=== PATIENT | male | born 1970 | race Caucasian/White ===

== ENCOUNTER 2023-08-05 08:11 | Day surgery (SDC) | payer OTHER, SELFPAY ==
[2023-08-05 08:26] VITALS: BP 126/80; PULSE 59; RESP 18; TEMP 36.3; O2SAT 99; BMI 30.2
[2023-08-05] MEDS: Lactated Ringers 1,000 ML 15 ML IV (08:35)
--- NOTE | 2023-08-05 09:06 | HP.PCM_ITS ---
HPI - General HPI Narrative FRANKLIN LUIS, is a 53 M who presents for screening colonoscopy. Patient reports his last colonoscopy was normal. He has no abdominal pain or blood in stool. He reports no family history of colon cancer. PFSH Medical History (Updated 08/02/23 @ 14:07 by Jessica Gonzalez) Gout History of supraventricular tachycardia Non-smoker Wears glasses Home Medications arginine (L-arginine) 500 mg capsule 500 mg PO DAILY 06/16/23 [History Last Taken Unknown] multivitamin 1 tab PO DAILY 06/16/23 [History Last Taken Unknown] Allergy/AdvReac Type Severity Reaction Status Date / Time No Known Allergies Allergy Verified 08/05/23 08:36 Surgical History (Updated 08/02/23 @ 14:07 by Jessica Gonzalez) History of cardiac radiofrequency ablation History of mandibular surgery Hx of colonoscopy Hx of umbilical hernia repair Social History (Updated 06/16/23 @ 08:44 by Juanita Montelongo) household members: spouse current occupational status: employed Smoking Status: Never smoker alcohol intake: current alcohol intake frequency: holidays/special occasions only Past Medical/Surgical History Planned Operation Planned Operative Procedure/s: CSCOPE Previous Hospitalizations/Surgeries HX Hospitalizations: No Any Problems With Anesthesia: No You/Your Family Experience Fever (Hyperthermia) With Anes: No Cholinesterase deficiency: No Cardiovascular Hx Hypertension: No Respiratory Hx Sleep Apnea: No Hx Respiratory Tract Infection/Cold (presently): No Do You Snore Loudly (louder than talking or can be heard): No Do You Often Feel Tired/ Fatigued/ Sleepy Dring Daytime?: No Has Anyone Observed You Stop Breathing During Sleep?: No Result (for STOP score): Negative Smoking Status: Never smoker Neurological Does patient have nerve stimulator: No Miscellaneous Recent Exposure to Contagious Disease: No Allergies No Known Allergies Allergy (Verified 08/05/23 08:36) Discharge Is Pt Admitted From a Correction, or a Penitentiary: No After D/C, Where Do you Plan to Go: Return Home Vital Signs Vital Signs Vital Signs: 08/05/23 08:26 08/05/23 08:26 Temperature 97.3 F L Temperature Source Temporal Pulse Rate 59 L Respiratory Rate 18 Respiratory Pattern Normal Blood Pressure 126/80 H Blood Pressure Mean 95 Blood Pressure Source Monitor Blood Pressure Position Semi-Fowlers Blood Pressure Location Left Arm Pulse Ox 99 Oxygen Delivery Method Room Air Weight Weight: 228 lb 13.437 oz Body Mass Index (BMI) 30.2 Physical Exam Const alert and oriented x3 HEENT normocephalic Eyes PERRL Resp normal respiratory effort and normal air movement Cardio regular rate and regular rhythm GI soft to palpation, non-tender and non-distended Extremity normal to inspection Assessment & Plan Assessment/Plan (1) Encounter for screening for malignant neoplasm of colon: PLAN: I explained endoscopy in detail to the patient. I explained the risks including but not limited to stroke or heart attack with anesthesia, perforation of the GI tract, bleeding, infection. I explained that any of these could necessitate further emergency surgery. The patient understands and all questions were answered sufficiently. The patient wishes to proceed with procedure. Aime Schneider MD Pager: [facility] [place] [address] [place] [address], [address] [place] [phone] Office: Surgery Risks - Colonoscopy Risks Include but are not Limited To: Risks include but are not limited to: Bleeding, perforation requiring further surgery, inability to complete colonoscopy requiring barium enema.
--- NOTE | 2023-08-05 09:37 | OP.COLON_ITS ---
Patient Name: Mike Chapa Procedure Date: 08/05/2023 9:11 AM Date of : 1970 Age: 53 Procedure: Colonoscopy Indications: Screening for colorectal malignant neoplasm Providers: Aime Schneider MD Referring MD: Aime Schneider MD Medicines: Monitored Anesthesia Care Patient Profile: This is a 53 year old male. Refer to note in patient chart for documentation of history and physical. Last Colonoscopy: several years ago. Complications: No immediate complications. Procedure: Pre-Anesthesia Assessment: - Prior to the procedure, a History and Physical was performed, and patient medications and allergies were reviewed. The patient's tolerance of previous anesthesia was also reviewed. The risks and benefits of the procedure and the sedation options and risks were discussed with the patient. All questions were answered, and informed consent was obtained. Prior Anticoagulants: The patient has taken no anticoagulant or antiplatelet agents. After reviewing the risks and benefits, the patient was deemed in satisfactory condition to undergo the procedure. After I obtained informed consent, the scope was passed under direct vision. Throughout the procedure, the patient's blood pressure, pulse, and oxygen saturations were monitored continuously. The Colonoscope was introduced through the anus and advanced to the cecum, identified by appendiceal orifice and ileocecal valve. The colonoscopy was performed without difficulty. The patient tolerated the procedure well. The quality of the bowel preparation was good. The ileocecal valve, appendiceal orifice, and rectum were photographed. Scope In: 9:19:31 AM Scope Withdrawal Time 0 hours 6 minutes 4 seconds Scope Out: 9:34:18 AM Total Procedure Duration Time 0 hours 14 minutes 47 seconds Findings: The entire examined colon appeared normal on direct and retroflexion views. Impression: - The entire examined colon is normal on direct and retroflexion views. - No specimens collected. Recommendation: - Discharge patient to home. - Resume previous diet. - Continue present medications. - Repeat colonoscopy in 10 years for screening purposes. Procedure Code(s): --- Professional --- 49829, Colonoscopy, flexible; diagnostic, including collection of specimen(s) by brushing or washing, when performed (separate procedure) Diagnosis Code(s): --- Professional --- Z12.11, Encounter for screening for malignant neoplasm of colon CPT copyright 2021 [employer]. All rights reserved. The codes documented in this report are preliminary and upon community relations advisor review may be revised to meet current compliance requirements. Aime Schneider MD 08/05/2023 9:37:12 AM This report has been signed electronically. Number of Addenda: 0 Note Initiated On: 08/05/2023 9:11 AM
--- NOTE | 2023-08-05 09:38 | OP.CCLET_ITS ---
08/05/2023 No Primary Care Physician Re : Colonoscopy procedure for Mike Chapa Dear Care Physician This procedure was performed on Saturday, August 05, 2023. My impressions and recommendations are as follows: Impressions : - The entire examined colon is normal on direct and retroflexion views. - No specimens collected. Recommendations : - Discharge patient to home. - Resume previous diet. - Continue present medications. - Repeat colonoscopy in 10 years for screening purposes. My findings are described in the full procedure note, which is enclosed. If I can be of further assistance, please feel free to contact me at Doctor phone number(s): , Work: . Sincerely, Aime Schneider MD 08/05/2023 9:37:12 AM This report has been signed electronically.
[2023-08-05 09:40] VITALS: BP 108/78; BP 126/80; PULSE 57; RESP 16; TEMP 36.6; O2SAT 97
[2023-08-05 09:45] VITALS: BP 126/80; BP 137/75; PULSE 54; RESP 16; O2SAT 95
[2023-08-05 09:50] VITALS: BP 115/78; BP 126/80; PULSE 53; RESP 16; TEMP 36.5; O2SAT 95
[2023-08-05 10:16] VITALS: BP 126/80
== END 2023-08-05 10:47 | disposition home or self-care (01) ==
LOC: EN 08:13 → AC 08:14
PROVIDERS: Referring Provider Surgery; Visit Provider Surgery
PROC: 0DJD8ZZ Inspection of Lower Intestinal Tract, Via Natural or Artificial Opening Endoscopic (ICD-10-PCS; CPT 45378; principal; 2023-08-05 09:10)
DX: Z12.11 Encounter for screening for malignant neoplasm of colon (principal); Z87.19 Personal history of other diseases of the digestive system
CPT/HCPCS: 45378; J7120; J2405

== ENCOUNTER → 2024-01-12 | Outpatient (CLI) | payer OTHER, SELFPAY ==
--- NOTE | 2024-01-12 06:35 | MRI_ITS ---
STUDY: MRI RIGHT SHOULDER REASON FOR EXAM: Male, 53 years old. Impingement syndrome. TECHNIQUE: Standardized fat and water weighted pulse sequences were obtained in all 3 orthogonal planes. COMPARISON: None. FINDINGS: There is mild supraspinatus tendinosis with a 3 x 3 mm low-grade partial-thickness articular surface tear of the anterior distal supraspinatus tendon insertion (coronal T2 series 5 image 13; axial PD series 2 image 8). There is mild infraspinatus tendinosis with articular surface fraying, but no full-thickness tear (coronal T2 series 5 images 8-9; axial PD series 2 image 8). There is subscapularis tendinosis with tendon thickening and increased intrasubstance signal. Normal teres minor tendon. Normal supraspinatus muscle. Normal infraspinatus muscle. Normal subscapularis muscle. Normal teres minor muscle. Normal glenohumeral articulation. There is tiny enthesopathic subcortical cyst formation of the greater tuberosity of the humeral head. Normal biceps labral complex. Normal intracapsular long biceps tendon. Normal labrum. Normal capsulo-ligamentous complex. Normal rotator interval. There is an os acromiale. There is a Type II acromial morphology (curved), with a neutral orientation. There is trace subacromial-subdeltoid bursal fluid. Normal visualized coracohumeral and coracoacromial ligaments. Normal quadrilateral space. Normal axillary space. Normal deltoid muscle. Normal trapezius muscle. MRI/Upper Ext Joint Only(Routine) IMPRESSION: Mild supraspinatus tendinosis with a 3 x 3 mm low-grade partial-thickness articular surface tear of the anterior distal supraspinatus tendon insertion. Mild infraspinatus tendinosis with articular surface fraying, but no full-thickness tear. Subscapularis tendinosis. Os acromiale. Minimal subacromial-subdeltoid bursitis. Electronically Signed: Jose Mcmullen MD at 8:11 EDT ,
== END | disposition home or self-care (01) ==
DX: M75.41 Impingement syndrome of right shoulder (principal); G89.29 Other chronic pain
CPT/HCPCS: 73221